=== PATIENT | female | born 1995 | race Caucasian/White ===

== ENCOUNTER 2016-06-19 20:35 | Emergency (ER) | payer BC ==
[2016-06-19] MEDS ORDERED: Acetaminophen TAB* 325 MG PO ONE (22:40)
[2016-06-19 22:59] LABS: Urine Bilirubin Negative (Negative); Urine Glucose Negative (Negative); Urine Nitrite Negative (Negative)
[2016-06-19 23:09] LABS: Hematocrit 41 % (35-47); Hemoglobin 13.9 g/dl (12.0-16.0); Mean Corpuscular HGB Conc 34 g/dl (31-36); Mean Corpuscular Hemoglobin 28 pg (27-31); Mean Corpuscular Volume 83 fL (80-97); Mean Platelet Volume 8 um3 (7.4-10.4); Red Blood Count 4.89 10^6/ul (4.0-5.4); Red Cell Distribution Width 13 % (10.5-15); White Blood Count 9.1 10^3/ul (3.5-10.8)
[2016-06-19 23:25] LABS: ALT 20 U/L (7-52); AST 19 U/L (13-39); Albumin 4.1 g/dL (3.2-5.2); Alkaline Phosphatase 65 U/L (34-104); Anion Gap 10 mmol/L (2-11); BUN/Creatinine Ratio 11.6 (8-20); Blood Urea Nitrogen 10 mg/dL (6-24); CO2 Carbon Dioxide 23 mmol/L (22-32); Calcium 9.3 mg/dL (8.6-10.3); Chloride 101 mmol/L (101-111); EGFR African American 109.3 (>60); Globulin 3.3 g/dL (2-4); Glucose 90 mg/dL (70-100); Potassium 3.7 mmol/L (3.5-5.0); Sodium 134 mmol/L (133-145); Total Protein 7.4 g/dL (6.4-8.9)
[2016-06-20 00:58] VITALS: BP 105/66
--- NOTE | 2016-06-20 01:20 | ED ---
Jan Mcclure Aidan, scribed for Boy Ty on 06/19/16 at 2255 . Neck Pain - HPI Summary HPI Summary: 20 y/o female presents to the ED with a complaint of acute, constant, moderate ( 4/10) neck pain that began suddenly at 1400 today with an associated THOMAS. Additionally, she felt slightly feaverish and has seasonal allergies. Pt denies any ear pain, CP, or SOB. - History of Current Complaint Chief Complaint: EDGeneral Stated Complaint: NECK PAIN/FEVER/DROWSY Time Seen by Provider: 06/19/16 22:30 Hx Obtained From: Patient Onset/Duration Of Injury/Symptoms: Hours - 1400 today Mechanism Of Injury: No Known Trauma Timing: Constant, Lasting Hours Onset/Duration: Sudden Onset, Still Present - THOMAS is still present Severity Initially: Moderate Severity Currently: Moderate Pain Intensity: 4 Pain Scale Used: 0-10 Numeric Location: Discrete At: - neck, associated THOMAS Character: Sharp Aggravating Factors: Other: - unknown Alleviating Factors: Other: - unknown Associated Signs & Symptoms: Negative: Negative - feeling feaverish, THOMAS - Allergies/Home Medications Allergies/Adverse Reactions: Allergies Allergy/AdvReac Type Severity Reaction Status Date / Time No Known Allergies Allergy Verified 06/19/16 20:44 PMH/Surg Hx/FS Hx/Imm Hx Endocrine/Hematology History: Denies: Hx Diabetes Cardiovascular History: Denies: Hx Hypertension, Hx Pacemaker/ICD History: Denies: Hx Dialysis, Hx Renal Disease Sensory History: Denies: Hx Hearing Aid Psychiatric History: Denies: Hx Panic Disorder Infectious Disease History: No Infectious Disease History: Denies: Traveled Outside the [place] in Last 30 Days - Family History Known Family History: Positive: Hypertension - Social History Occupation: Student Lives: Alone Alcohol Use: None Hx Substance Use: No Substance Use Type: Reports: None Hx Tobacco Use: No Smoking Status (MU): Never Smoked Tobacco Do You Chew or Dip Tobacco: No Have You Chewed or Dipped Tobacco in the LAST YEAR: No Review of Systems Constitutional: Other - feeling feaverish Negative: Fever, Chills, Fatigue, Skin Diaphoresis Eyes: Negative ENT: Negative Cardiovascular: Negative Respiratory: Negative Gastrointestinal: Negative Genitourinary: Negative Positive: Arthralgia - neck pain. Negative: Myalgia, Decreased ROM, Edema Skin: Negative Positive: Headache. Negative: Weakness, Paresthesia, Numbness, Syncope, Slurred Speech Psychological: Normal All Other Systems Reviewed And Are Negative: Yes Physical Exam Triage Information Reviewed: Yes Vital Signs On Initial Exam: Initial Vitals Temp Pulse Resp BP Pulse Ox 98.3 F 102 16 121/59 100 06/19/16 20:40 06/19/16 20:40 06/19/16 20:40 06/19/16 20:40 06/19/16 20:40 Vital Signs Reviewed: Yes Appearance: Positive: Well-Appearing, No Pain Distress Skin: Positive: Warm, Skin Color Reflects Adequate Perfusion, Dry Head/Face: Positive: Normal Head/Face Inspection Eyes: Positive: Normal ENT: Positive: Normal ENT inspection Neck: Positive: Supple, Nontender Respiratory/Lung Sounds: Positive: Clear to Auscultation, Breath Sounds Present Cardiovascular: Positive: RRR Abdomen Description: Positive: Nontender, Soft Bowel Sounds: Positive: Present Musculoskeletal: Positive: Normal Neurological: Positive: Normal Psychiatric: Positive: Affect/Mood Appropriate Diagnostics - Vital Signs Vital Signs Temp Pulse Resp BP Pulse Ox 06/19/16 22:23 101.5 F 105 18 124/82 100 06/19/16 21:50 98.4 F 96 20 110/60 100 06/19/16 20:40 98.3 F 102 16 121/59 100 - Laboratory Result Diagrams: 06/19/16 23:00 06/19/16 23:00 Lab Statement: Any lab studies that have been ordered have been reviewed, and results considered in the medical decision making process. - CT BRAIN CT CT Interpretation: No Acute Changes - IMPRESSION: Normal brain. No acute intracranial abnormality. No hemmorhage. No visible infarct or mass. Osscous structures are intact. CT Interpretation Completed By: Radiologist - pigeon fancier Neck Course/Dx - Course Course Of Treatment: This is a 20 y/o with neck pain that began at 1400 with an associated THOMAS. She also mentions feeling feaverish. Brain CT was negative. Influenza test was also negative and labs were negative. She will be discharged home with motrin. - Diagnoses Provider Diagnoses: Headache Discharge - Discharge Plan Condition: Stable Disposition: HOME Discharge Disposition Comment: If symptoms worsen, please return within 72 hours. Prescriptions: Ibuprofen TAB* [Motrin TAB* 600 MG] 600 mg PO Q8H PRN #20 tab PRN Reason: Pain Patient Education Materials: General Headache (ED) The documentation as recorded by the Jan romero Aidan accurately reflects the service I personally performed and the decisions made by , Boy Ty.
--- NOTE | 2016-06-20 07:51 | RAD ---
INDICATION: Fever COMPARISON: None TECHNIQUE: PA and lateral views of the chest were obtained. FINDINGS: The heart and mediastinum are normal in size and contour. The lungs are grossly clear. There is no evidence of large pleural effusion. Visualized bones are normal for the patient's age. There is no radiographic evidence of free air beneath the diaphragm IMPRESSION: No radiographic evidence of acute cardiopulmonary disease.
--- NOTE | 2016-06-20 07:52 | RAD ---
INDICATION: Headache COMPARISON: None. TECHNIQUE: Contiguous axial sections of the brain were obtained from the skull base to the vertex without contrast. FINDINGS: The ventricles, cisterns and sulci are within normal limits. The olguin-white matter differentiation is adequately maintained and there is no sulcal effacement. No significant focal abnormality or mass effect is present. There is no evidence for intracranial hemorrhage. No significant focal osseous abnormality is present. The visualized portion of the paranasal sinuses and mastoid air cells appear clear. IMPRESSION: Normal CT of the brain.
== END 2016-06-20 01:19 | disposition home or self-care (01) ==
LOC: ED 20:35
DX: R51 Headache (principal); M54.2 Cervicalgia
CPT/HCPCS: 36415; 70450; 71020; 80053; 81003; 84702; 85025; 87502; 99283; A9270-GY